=== PATIENT | female | born 1965 | race Caucasian/White ===

== ENCOUNTER → 2018-05-17 | Outpatient (CLI) | payer BC ==
[~2018-05-17] MED LIST: LEVSOD125 PO; Prozac40 MG PO
[2018-05-21 16:08] LABS: HPV 16 Negative (Negative); HPV 18 Negative (Negative); HPV OTHER HR TYPES Negative (Negative)
== END | disposition home or self-care (01) ==
LOC: LAB 08:09 → LAB SHORT 08:09
PROVIDERS: Internal Medicine
DX: Z01.419 Encounter for gynecological examination (general) (routine) without abnormal findings (principal)
CPT/HCPCS: 87624; G0145

== ENCOUNTER 2018-05-30 12:00 | Day surgery (SDC) | payer BC ==
[~2018-05-30] VITALS: Ht 167.6 cm; Wt 84.7 kg
--- NOTE | 2018-05-30 14:29 | NUR ---
05/30/18 1429 [address] Walker NURSE ASSISTED PATIENT WALK OUT TO HER RIDE HOME
== END 2018-05-30 14:20 | disposition home or self-care (01) ==
LOC: ORSCSDS 12:00
PROVIDERS: Surgery
PROC: 0DJD8ZZ Inspection of Lower Intestinal Tract, Via Natural or Artificial Opening Endoscopic (ICD-10-PCS; principal; 2018-05-30 13:00)
DX: Z12.11 Encounter for screening for malignant neoplasm of colon (principal); E03.9 Hypothyroidism, unspecified; F32.9 Major depressive disorder, single episode, unspecified; R13.10 Dysphagia, unspecified; J45.909 Unspecified asthma, uncomplicated; Z87.891 Personal history of nicotine dependence; Z79.899 Other long term (current) drug therapy
CPT/HCPCS: J7120

== ENCOUNTER → 2023-02-13 | Outpatient (CLI) | payer BC ==
[~2023-02-13] MED LIST changes: +PROAIR DIGIHAL90 MCG INH
[2023-02-17 18:16] LABS: HPV GENOTYPE 16 BY PCR Negative; HPV GENOTYPE 18 BY PCR Negative; HPV SOURCE Not Provided; HPV, OTHER HIGH RISK BY PCR Negative
== END ==
LOC: LAB SHORT 11:53 → LAB 11:53
PROVIDERS: Internal Medicine
DX: Z12.4 Encounter for screening for malignant neoplasm of cervix (principal)
CPT/HCPCS: 87624; 88142